=== PATIENT | female | born 1975 | race Caucasian/White ===

== ENCOUNTER → 2018-07-28 | Outpatient (CLI) | payer BC ==
[~2018-07-28] MED LIST: NORCO 325 MG-51 TAB PO
== END ==
LOC: MC.RAD 15:50
DX: Z12.31 Encounter for screening mammogram for malignant neoplasm of breast (principal); Z98.82 Breast implant status

== ENCOUNTER 2018-11-02 11:00 | Outpatient (RCR) | payer BC ==
[2018-10-23 13:20] VITALS: BP 113/60; PULSE 70; TEMP 98.1
[2018-10-26 13:11] VITALS: BP 110/62; PULSE 68; TEMP 98
[2018-10-29 14:30] VITALS: BP 99/58; PULSE 80; TEMP 98
[~2018-11-02] VITALS: Ht 175.3 cm; Wt 54.0 kg
[~2018-11-02 11:00] MED LIST changes: +LEXAPRO 10MG10 MG PO; +NATURAL IRON65 MG PO; +VALTREX 50500 MG/TAB PO
[2018-11-02 11:16] VITALS: BP 97/59; PULSE 73; TEMP 97.9
== END 2018-11-02 12:30 | disposition home or self-care (01) ==
LOC: EUO 11:00
DX: D50.9 Iron deficiency anemia, unspecified (principal); K90.0 Celiac disease
CPT/HCPCS: J2916

== ENCOUNTER 2019-09-23 15:00 | Outpatient (RCR) | payer BC ==
[2019-09-13 16:27] VITALS: BP 106/81; PULSE 66; TEMP 98.2
[2019-09-16 13:15] VITALS: BP 106/68; PULSE 71; TEMP 98.7
[2019-09-20 17:32] VITALS: BP 106/68; PULSE 68; TEMP 97
[~2019-09-23] VITALS: Ht 175.3 cm; Wt 51.8 kg
[2019-09-23 16:27] VITALS: BP 101/64; PULSE 72; TEMP 98.4
== END 2019-09-23 16:39 | disposition home or self-care (01) ==
LOC: EUO 15:00
DX: K90.0 Celiac disease (principal); E61.1 Iron deficiency
CPT/HCPCS: J2916

== ENCOUNTER 2020-09-07 15:52 | Outpatient (RCR) | payer BC ==
[~2020-09-07] VITALS: Ht 175.3 cm; Wt 55.9 kg
[2020-09-07 16:38] VITALS: BP 111/69; PULSE 81; TEMP 98
--- NOTE | 2020-09-07 19:43 | NUR ---
Pt's called express unit at approx 1900 to report that Dl has had a reaction to the iron infusion. Dl reported lightheadedness, burning to her "insides", burning and swelling to tip of tongue, sweating and N/V. She had declined a trip to ER, had taken benadryl, and was being monitored at home. I did call pt's cell phone at [phone] and left a voicemail checking in on patient and encouraging pt to have a low threshhold to seek emergency care if she had signs of severe hypotension such as severe lightheadedness, loss of vision etc.
--- NOTE | 2020-09-08 08:27 | NUR ---
Telephone encounter with Dl this morning. Pt is at work, reports still feels weak in arms and legs, but does not feel near-syncopal. Burning sensation to insides has resolved. Pt reports that she or her will be contacting Dr. Soto to report this event.
== END 2020-09-11 11:42 | disposition home or self-care (01) ==
LOC: EUO 15:52
DX: K90.0 Celiac disease (principal); D50.9 Iron deficiency anemia, unspecified
CPT/HCPCS: J2916

== ENCOUNTER 2020-10-03 16:00 | Outpatient (RCR) | payer OTHER ==
[2020-09-21 15:43] VITALS: BP 100/67; PULSE 73; TEMP 97.7
[2020-09-25 17:23] VITALS: BP 103/69; PULSE 69; TEMP 98.3
[2020-09-28 16:30] VITALS: BP 96/61; PULSE 66; TEMP 98.2
[~2020-10-03] VITALS: Ht 175.3 cm; Wt 55.9 kg
[2020-10-03 16:13] VITALS: BP 106/68; PULSE 70; TEMP 98.4
== END 2020-10-03 16:40 | disposition home or self-care (01) ==
LOC: EUO 16:00
DX: E61.1 Iron deficiency (principal); K90.0 Celiac disease
CPT/HCPCS: J1756; J7050

== ENCOUNTER 2021-06-28 06:02 | Day surgery (SDC) | payer OTHER ==
[~2021-06-28] VITALS: Ht 175.3 cm; Wt 57.0 kg
[2021-06-28 06:22] VITALS: BP 107/50; PULSE 95; TEMP 97.8
[2021-06-28] MEDS ORDERED: NATURAL IRON65 MG PO (06:25)
[2021-06-28 07:52] VITALS: BP 93/55; PULSE 67
--- NOTE | 2021-06-28 07:52 | NUR ---
Patient returns to room 8 per cart from surgery accompanied by Brock CARROLL and Pauline RN. IV fluids infusing. Siderails up x2 and call light in reach. Temp 97.3 and room air sats 98%. Scant bloody drainage on martita pad. Warm blankets on. Eyes open but allowed to rest.
[2021-06-28 08:07] VITALS: BP 91/46; PULSE 59
--- NOTE | 2021-06-28 08:07 | NUR ---
Resting and offers no complaints of discomfort. Remains drowsy.
--- NOTE | 2021-06-28 08:17 | NUR ---
Complains of cramping and rates pain at 6/10. Received IV Toradol in surgery. Medicated with Roxicodone 5mg po. Eating applesauce. Denies nausea. Warm blanket applied to stomach.
[2021-06-28 08:22] VITALS: BP 119/76; PULSE 63
[2021-06-28 08:37] VITALS: BP 114/65; PULSE 59
--- NOTE | 2021-06-28 08:37 | NUR ---
Talking with spouse. Resting more comfortably.
[2021-06-28 08:52] VITALS: BP 103/57; PULSE 65
--- NOTE | 2021-06-28 08:52 | NUR ---
Resting without futher complaints.
--- NOTE | 2021-06-28 08:52 | NUR ---
More awake and alert. Denies increase in pain. Tolerates water and applesauce.
--- NOTE | 2021-06-28 09:00 | NUR ---
Assisted up to the bathroom. Gait steady. Able to void and returns to room. Scant bloody drainage on martita pad. Returns to room. IV discontinued and site is free of redness. Patient dresses self.
--- NOTE | 2021-06-28 09:15 | NUR ---
Dismissal instructions given and voices understanding of these.
--- NOTE | 2021-06-28 09:21 | NUR ---
Patient dismissed to home driven by spouse and taken to the emergency room entrance per wheelchair and assisted into vehicle with instructions in hand.
[2021-06-28] MEDS ORDERED: PERCOCET 325 MG1 TA2 PO (11:02)
== END 2021-06-28 09:21 | disposition home or self-care (01) ==
LOC: SDCO 06:02
DX: N92.0 Excessive and frequent menstruation with regular cycle (principal); D64.9 Anemia, unspecified; F41.9 Anxiety disorder, unspecified; Z80.0 Family history of malignant neoplasm of digestive organs; Z79.899 Other long term (current) drug therapy
CPT/HCPCS: J1885; J2405; J2704; J3010; J7120

== ENCOUNTER → 2023-10-21 | Outpatient (CLI) | payer OTHER ==
[~2023-10-21] MED LIST changes: +PERCOCET 325 MG1 TA2 PO
== END ==
LOC: MC.RAD 16:19
DX: Z12.31 Encounter for screening mammogram for malignant neoplasm of breast (principal)